=== PATIENT | female | born 1945 | race Two or more races ===

== ENCOUNTER 2017-07-24 19:30 | Emergency (ER) | payer OTHER ==
[~2017-07-24] VITALS: Ht 157.5 cm; Wt 68.0 kg
[~2017-07-24 19:30] MED LIST: GLIPIZIDE METFO; GLUCOPHAGE XR500 MG PO; NOVOLOG MIX 70/33 M1 SQ; TOPROL XL100 MG; VASOTEC5 MG
[2017-07-24] MEDS ORDERED: LANTUS SOL100 UNIT/1 (19:42)
[2017-07-24] MEDS ORDERED: TOPROL XL50 M1 (19:43)
[2017-07-24] MEDS ORDERED: AMLODIPINE-BEN1 EAC4 (19:43)
[2017-07-24] MEDS ORDERED: FARXIGA5 MG (19:43)
== END 2017-07-24 22:23 | disposition home or self-care (01) ==
LOC: ER 19:30
DX: N39.0 Urinary tract infection, site not specified (principal)

== ENCOUNTER 2017-07-28 06:39 | Inpatient (IN) | payer OTHER ==
[~2017-07-28] VITALS: Ht 157.5 cm; Wt 68.0 kg
[~2017-07-28 06:39] MED LIST changes: +AMLODIPINE-BEN1 EAC4; +FARXIGA5 MG; +LANTUS SOL100 UNIT/1; +TOPROL XL50 M1
[2017-07-28] MEDS ORDERED: CIPRO100 MG (07:11)
== END 2017-08-08 09:03 | disposition home or self-care (01) | DRG 872 ==
LOC: ER 06:39 → MEDJ 18:50 → SEC-K 18:50 → MEDJ 19:18
PROC: BW40ZZZ Ultrasonography of Abdomen (ICD-10-PCS; principal; 2017-07-28)
DX: A41.51 Sepsis due to Escherichia coli [E. coli] (principal); N10 Acute pyelonephritis; E11.9 Type 2 diabetes mellitus without complications; Z79.4 Long term (current) use of insulin; B96.29 Other Escherichia coli [E. coli] as the cause of diseases classified elsewhere; I10 Essential (primary) hypertension; B34.9 Viral infection, unspecified

== ENCOUNTER 2017-11-06 15:36 | Emergency (ER) | payer OTHER ==
[~2017-11-06] VITALS: Ht 121.9 cm; Wt 68.0 kg
[~2017-11-06 15:36] MED LIST changes: +CIPRO100 MG
[2017-11-06] MEDS ORDERED: FORTAMET1000 MG (15:53)
== END 2017-11-06 18:35 | disposition home or self-care (01) ==
LOC: ER 15:36
DX: N39.0 Urinary tract infection, site not specified (principal); R10.84 Generalized abdominal pain; R10.2 Pelvic and perineal pain